=== PATIENT | male | born 1970 | race Two or more races ===

== ENCOUNTER 2020-09-19 19:38 | Emergency (ER) | payer OTHER ==
[~2020-09-19] VITALS: Ht 180.3 cm; Wt 83.9 kg
[2020-09-19] MEDS ORDERED: CARVEDILOL ER40 MG PO (20:09)
[2020-09-19] MEDS ORDERED: ZESTRIL2.5 MG PO (20:09)
== END 2020-09-19 22:52 | disposition home or self-care (01) ==
LOC: ER 19:38 → CPU-OBS 19:55 → ER 19:55
DX: R07.89 Other chest pain (principal); Z11.52 Encounter for screening for COVID-19
CPT/HCPCS: G0378; G0379; 93005